=== PATIENT | male | born 1950 | race Caucasian/White ===

== ENCOUNTER 2019-04-19 05:05 | Day surgery (SDC) | payer OTHER ==
[2019-04-14 12:04] LABS: BASOPHILS % (AUTO) 0.4 % (0-1); EOSINOPHILS # (AUTO) 0.2 X10'3 (0-0.9); EOSINOPHILS % (AUTO) 3.7 % (0-6); HEMATOCRIT 47.1 % (42.0-52.0); HEMOGLOBIN 16.3 g/dl (14.0-17.9); LYMPHOCYTES # (AUTO) 1.9 X10'3 (1.1-4.8); LYMPHOCYTES % (AUTO) 29.6 % (21-51); MEAN CORPUSCULAR HEMOGLOBIN 31.4 PG (27.0-31.0); MEAN CORPUSCULAR HGB CONC 34.6 g/dL (33.0-36.5); MEAN CORPUSCULAR VOLUME 90.8 FL (78-98); MEAN PLATELET VOLUME 8.2 FL (7.4-10.4); MONOCYTES # (AUTO) 0.6 X10'3 (0-0.9); MONOCYTES % (AUTO) 9.3 % (2-12); NEUTROPHILS # (AUTO) 3.7 X10'3 (1.8-7.7); PLATELET COUNT 178 X10'3 (140-440); RED BLOOD COUNT 5.18 X10'6 (4.70-6.10); RED CELL DISTRIBUTION WIDTH 13.3 % (11.5-14.5); WHITE BLOOD COUNT 6.5 X10'3 (4.5-11.0)
[2019-04-14 12:15] LABS: ALBUMIN 3.9 G/DL (3.4-5.0); ANION GAP 9 (8-16); BLOOD UREA NITROGEN 19 MG/DL (7-18); BUN/CREATININE RATIO 20.4 (5.4-32.0); CALCIUM 8.9 MG/DL (8.5-10.1); CHLORIDE 105 MMOL/L (99-107); CREATININE 0.93 MG/DL (0.60-1.10); GLUCOSE 93 MG/DL (70-104); POTASSIUM 3.9 MMOL/L (3.5-5.1); SODIUM 142 MMOL/L (135-145); TOTAL CARBON DIOXIDE 28.1 MMOL/L (24-32); eGFR 81 ML/MIN
[2019-04-14 12:16] LABS: PARTIAL THROMBOPLASTIN TIME 32 SECONDS (22-32)
[2019-04-19] VITALS (12 sets, daily range): BP systolic 119–157; BP diastolic 71–87
[~2019-04-19] VITALS: Ht 162.6 cm; Wt 86.9 kg
[~2019-04-19 05:05] MED LIST: ACET500C5 PO; ASPI-1053 PO; ATOR20TA PO; CARV6.253 PO; CLOP75TA15 PO; LOSA100T57 PO; [UNRECOGNIZED DRUG - CODE] PO
[2019-04-19] MEDS ORDERED: LORazepam 0.5 MG tablet PO PRN (05:20)
[2019-04-19] MEDS ORDERED: normal saline 1,000 ML IV SCH (05:20)
[2019-04-19] MEDS ORDERED: diphenhydrAMINE 25mg capsule PO PRN (05:20)
[2019-04-19] MEDS ORDERED: CHLO25TA2 PO (05:47)
[2019-04-19] MEDS ORDERED: iohexol 350MG/ML 100ml bottle IV ONE (06:10)
[2019-04-19] MEDS ORDERED: LIDOcaine 1% (10mg/ml)w/preservative injection 20ml MDV ONE (06:10)
[2019-04-19] MEDS ORDERED: midazolam 2 mg/2 ml injection ONE (06:24)
[2019-04-19] MEDS ORDERED: fentaNYL/PF 50MCG/1 ML 2ML syringe ONE (06:24)
[2019-04-19] MEDS ORDERED: proCHLORperazine 10 MG/2 ml inj ONE (06:34)
[2019-04-19] MEDS ORDERED: HYDROcodone/acetaminophen 5mg/325mg tablet PO PRN (07:10)
[2019-04-19] MEDS ORDERED: ondansetron/PF 4mg/2ml inj IV PRN (07:10)
[2019-04-19] MEDS ORDERED: proCHLORperazine 10 MG/2 ml inj IV PRN (07:10)
[2019-04-19] MEDS ORDERED: HYDROcodone/acetaminophen 10/325mg tab PO PRN (07:10)
[2019-04-19] MEDS ORDERED: OXAZEpam 15mg capsule PO PRN (07:10)
== END 2019-04-19 10:07 | disposition home or self-care (01) ==
LOC: SSTAY O 05:05
PROVIDERS: ATTEND Internal Medicine Interventional Cardiology
DX: R94.39 Abnormal result of other cardiovascular function study (principal); R07.9 Chest pain, unspecified; I25.10 Atherosclerotic heart disease of native coronary artery without angina pectoris; J44.9 Chronic obstructive pulmonary disease, unspecified; G47.33 Obstructive sleep apnea (adult) (pediatric); I25.2 Old myocardial infarction; I10 Essential (primary) hypertension; E78.5 Hyperlipidemia, unspecified; F43.10 Post-traumatic stress disorder, unspecified; F32.9 Major depressive disorder, single episode, unspecified; I48.20 Chronic atrial fibrillation, unspecified; Z88.2 Allergy status to sulfonamides; Z79.899 Other long term (current) drug therapy; Z79.01 Long term (current) use of anticoagulants; Z79.82 Long term (current) use of aspirin; Z87.891 Personal history of nicotine dependence
CPT/HCPCS: 36415; 80048; 85025; 85610; 85730; 93005; 93458; 99152; C1769; J0780; J1644; J2001; J2250; J3010; J7030; Q0163; Q9967; A4620; A6258

== ENCOUNTER 2021-02-17 23:12 | Emergency (ER) | payer OTHER, MEDICARE ==
[~2021-02-17] VITALS: Ht 162.6 cm; Wt 88.5 kg
[~2021-02-17 23:12] MED LIST changes: +CHLO25TA2 PO
[2021-02-18 00:11] LABS: BASOPHILS % (AUTO) 0.4 % (0-1); EOSINOPHILS # (AUTO) 0.1 X10'3 (0-0.9); EOSINOPHILS % (AUTO) 0.5 % (0-6); HEMATOCRIT 44.2 % (42.0-52.0); HEMOGLOBIN 15.5 g/dl (14.0-17.9); LYMPHOCYTES # (AUTO) 1.2 X10'3 (1.1-4.8); LYMPHOCYTES % (AUTO) 10.4 % (21-51); MEAN CORPUSCULAR HEMOGLOBIN 31.3 PG (27.0-31.0); MEAN CORPUSCULAR VOLUME 89.5 FL (78-98); MEAN PLATELET VOLUME 8.5 FL (7.4-10.4); MONOCYTES # (AUTO) 0.7 X10'3 (0-0.9); MONOCYTES % (AUTO) 5.9 % (2-12); NEUTROPHILS # (AUTO) 9.3 X10'3 (1.8-7.7); NEUTROPHILS % (AUTO) 82.8 % (42-75); PLATELET COUNT 165 X10'3 (140-440); RED BLOOD COUNT 4.94 X10'6 (4.70-6.10); RED CELL DISTRIBUTION WIDTH 13.4 % (11.5-14.5); WHITE BLOOD COUNT 11.2 X10'3 (4.5-11.0)
[2021-02-18 00:24] LABS: ALANINE AMINOTRANSFERASE 236 U/L (12-78); ALBUMIN 3.9 G/DL (3.4-5.0); ALBUMIN/GLOBULIN RATIO 1.3 (1.1-1.5); ALKALINE PHOSPHATASE 105 IU/L (46-116); ANION GAP 8 (8-16); ASPARTATE AMINO TRANSFERASE 148 U/L (10-37); BILIRUBIN,TOTAL 2.7 MG/DL (0.1-1.0); BLOOD UREA NITROGEN 21 MG/DL (7-18); BUN/CREATININE RATIO 17.8 (5.4-32.0); CALCIUM 8.5 MG/DL (8.5-10.1); CHLORIDE 103 MMOL/L (99-107); CREATININE 1.18 MG/DL (0.60-1.10); GLUCOSE 146 MG/DL (70-104); POTASSIUM 3.4 MMOL/L (3.5-5.1); SODIUM 139 MMOL/L (135-145); TOTAL CARBON DIOXIDE 27.6 MMOL/L (24-32); eGFR 61 ML/MIN
[2021-02-18 00:32] LABS: LIPASE 162 U/L (73-393)
[2021-02-18 01:10] VITALS: BP 139/79
== END 2021-02-18 01:21 | disposition home or self-care (01) ==
LOC: ER 23:13
DX: R07.89 Other chest pain (principal); R12 Heartburn; R14.0 Abdominal distension (gaseous); I10 Essential (primary) hypertension; Z88.2 Allergy status to sulfonamides; Z79.899 Other long term (current) drug therapy; Z79.82 Long term (current) use of aspirin; I25.10 Atherosclerotic heart disease of native coronary artery without angina pectoris; I25.2 Old myocardial infarction; Z95.5 Presence of coronary angioplasty implant and graft; Z87.81 Personal history of (healed) traumatic fracture; Z72.89 Other problems related to lifestyle
CPT/HCPCS: 36415; 71045; 80053; 83690; 83880; 84484; 85025; 93005; 99285

== ENCOUNTER 2022-09-06 14:19 | Outpatient (CLI) | payer OTHER, MEDICARE | END 2022-09-06 23:59 | disposition home or self-care (01) | LOC: RAD 14:19 | PROVIDERS: ATTEND Chiropractor | DX: I08.0 Rheumatic disorders of both mitral and aortic valves (principal); I25.10 Atherosclerotic heart disease of native coronary artery without angina pectoris; I25.2 Old myocardial infarction | CPT/HCPCS: 93306 ==

== ENCOUNTER 2022-10-09 08:38 | Outpatient (CLI) | payer OTHER ==
[~2022-10-09] VITALS: Ht 162.6 cm; Wt 88.9 kg
[2022-10-09] MEDS ORDERED: albuterol 2.5 MG/3 ML nebule NEB PRN (09:05)
== END 2022-10-09 23:59 | disposition home or self-care (01) ==
LOC: RT 08:38
PROVIDERS: ATTEND Chiropractor
DX: J44.9 Chronic obstructive pulmonary disease, unspecified (principal)
CPT/HCPCS: 71046; 94060; 94760

== ENCOUNTER 2023-11-26 08:31 | Inpatient (IN) | payer OTHER, MEDICARE ==
[~2023-11-26] VITALS: Ht 162.6 cm; Wt 90.0 kg
[~2023-11-26 08:31] MED LIST changes: -LOSA100T57 PO; +LOSA100T58 PO
[2023-11-26 08:59] LABS: BASOPHILS % (AUTO) 0.3 % (0-1); EOSINOPHILS # (AUTO) 0.1 X10'3 (0-0.9); EOSINOPHILS % (AUTO) 1.1 % (0-6); HEMATOCRIT 46.5 % (42.0-52.0); HEMOGLOBIN 15.8 g/dl (14.0-17.9); LYMPHOCYTES # (AUTO) 1.8 X10'3 (1.1-4.8); LYMPHOCYTES % (AUTO) 21.1 % (21-51); MEAN CORPUSCULAR HEMOGLOBIN 31.6 PG (27.0-31.0); MEAN CORPUSCULAR HGB CONC 33.9 g/dL (33.0-36.5); MEAN CORPUSCULAR VOLUME 93.1 FL (78-98); MEAN PLATELET VOLUME 7.8 FL (7.4-10.4); MONOCYTES # (AUTO) 0.8 X10'3 (0-0.9); MONOCYTES % (AUTO) 9.5 % (2-12); NEUTROPHILS # (AUTO) 5.7 X10'3 (1.8-7.7); PLATELET COUNT 162 X10'3 (140-440); RED BLOOD COUNT 4.99 X10'6 (4.70-6.10); WHITE BLOOD COUNT 8.3 X10'3 (4.5-11.0)
[2023-11-26 09:02] LABS: ALBUMIN 3.6 G/DL (3.4-5.0); ANION GAP 6 (8-16); BLOOD UREA NITROGEN 20 MG/DL (7-18); BUN/CREATININE RATIO 19.8 (10.0-20.0); CALCIUM 9.2 MG/DL (8.5-10.1); CHLORIDE 103 MMOL/L (99-107); CREATININE 1.01 MG/DL (0.60-1.10); GLUCOSE 95 MG/DL (70-104); POTASSIUM 4.1 MMOL/L (3.5-5.1); SODIUM 136 MMOL/L (135-145); TOTAL CARBON DIOXIDE 26.7 MMOL/L (24-32); eCRCL 55 ML/MIN; eGFR 73 ML/MIN
[2023-11-26 09:07] LABS: APTT 29 SECONDS (22-32); PROTHROMBIN TIME 10.8 SECONDS (9.0-12.0)
[2023-11-26] MEDS ORDERED: iohexol 350MG/ML 100ml bottle IV ONE (11:36)
[2023-11-26] MEDS: clopidogrel 75mg tablet PO ONE (14:05)
[2023-11-26] MEDS ORDERED: SIME80TA15 PO (17:45)
[2023-11-26] MEDS ORDERED: DICL100G59 TOP (17:45)
[2023-11-26] MEDS ORDERED: SPIR25TA5 PO (17:45)
[2023-11-26] MEDS ORDERED: ALIR75PE5 SUBCUT (17:57)
[2023-11-26] MEDS ORDERED: LIDO700A47 TOP (17:57)
[2023-11-26] MEDS ORDERED: EZET10TA6 PO (17:57)
[2023-11-26] MEDS ORDERED: GABA-530 PO (17:57)
[2023-11-26] MEDS ORDERED: OSC500T PO (18:02)
[2023-11-26] MEDS ORDERED: ERGO400C PO (18:02)
[2023-11-26 18:35] VITALS: PULSE 58; RESP 16; O2SAT 95
[2023-11-26] MEDS: heparin, porcine 5000 units/ml vial SQ SCH (19:59)
[2023-11-26 21:30] VITALS: BP 129/72; PULSE 60; RESP 16; TEMP 96.9; O2SAT 96
[2023-11-27 00:03] VITALS: PULSE 86; RESP 16; O2SAT 93
[2023-11-27 02:00] VITALS: BP 105/63; PULSE 60; RESP 14; TEMP 97.9; O2SAT 95
[2023-11-27 06:00] VITALS: BP 119/62; PULSE 55; RESP 16; TEMP 97.6; O2SAT 97
[2023-11-27 06:42] LABS: BASOPHILS % (AUTO) 0.3 % (0-1); EOSINOPHILS # (AUTO) 0.1 X10'3 (0-0.9); EOSINOPHILS % (AUTO) 1.2 % (0-6); HEMATOCRIT 48.5 % (42.0-52.0); HEMOGLOBIN 16.3 g/dl (14.0-17.9); LYMPHOCYTES # (AUTO) 2.1 X10'3 (1.1-4.8); LYMPHOCYTES % (AUTO) 27.1 % (21-51); MEAN CORPUSCULAR HGB CONC 33.5 g/dL (33.0-36.5); MEAN CORPUSCULAR VOLUME 92.6 FL (78-98); MONOCYTES # (AUTO) 0.8 X10'3 (0-0.9); MONOCYTES % (AUTO) 10.2 % (2-12); NEUTROPHILS # (AUTO) 4.7 X10'3 (1.8-7.7); NEUTROPHILS % (AUTO) 61.2 % (42-75); PLATELET COUNT 171 X10'3 (140-440); RED BLOOD COUNT 5.24 X10'6 (4.70-6.10); WHITE BLOOD COUNT 7.7 X10'3 (4.5-11.0)
[2023-11-27 06:56] LABS: HEMOGLOBIN A1C 5.6 % (4.5-6.2)
[2023-11-27 07:06] LABS: ANION GAP 7 (8-16); BLOOD UREA NITROGEN 22 MG/DL (7-18); BUN/CREATININE RATIO 22.2 (10.0-20.0); CHLORIDE 104 MMOL/L (99-107); CREATININE 0.99 MG/DL (0.60-1.10); GLUCOSE 95 MG/DL (70-104); POTASSIUM 4.2 MMOL/L (3.5-5.1); SODIUM 138 MMOL/L (135-145); TOTAL CARBON DIOXIDE 26.8 MMOL/L (24-32); eCRCL 56 ML/MIN; eGFR 74 ML/MIN
[2023-11-27 07:07] LABS: ALBUMIN 3.7 G/DL (3.4-5.0); CHOL/HDL RATIO 1.6 (0.00-4.99); CHOLESTEROL 87 MG/DL (0-200); HDL CHOLESTEROL 54 MG/DL (35-60); LDL CHOLESTEROL 27 MG/DL (50-100); MAGNESIUM 2.1 MG/DL (1.5-2.4); TRIGLYCERIDES 99 MG/DL (20-135)
[2023-11-27] MEDS: spironolactone 25 MG tablet PO SCH (08:42)
[2023-11-27] MEDS: clopidogrel 75mg tablet PO SCH (08:43)
[2023-11-27] MEDS: chlorthalidone 25mg tablet PO SCH (08:43)
[2023-11-27] MEDS: ezetimibe 10mg tablet PO SCH (08:43)
[2023-11-27] MEDS: aspirin 81mg tab.chew PO SCH (08:44)
[2023-11-27] MEDS: losartan 50mg tablet PO SCH (08:44)
[2023-11-27] MEDS: carvedilol 6.25mg tablet PO SCH (08:44)
[2023-11-27 12:00] VITALS: BP 122/65; PULSE 57; RESP 16; TEMP 97.9; O2SAT 97
[2023-11-27] MEDS ORDERED: CLOP-32 PO (14:59)
[2023-11-27] MEDS ORDERED: gabapentin 100mg capsule PO SCH (21:00)
== END 2023-11-27 16:00 | disposition home or self-care (01) | DRG 69 ==
LOC: ER 08:32 → ED HOLD 13:30 → ORTHO 4S 21:10
PROVIDERS: ADMIT Internal Medicine; ATTEND Internal Medicine
PROC: B3251ZZ Computerized Tomography (CT Scan) of Bilateral Common Carotid Arteries using Low Osmolar Contrast (ICD-10-PCS; principal; 2023-11-26)
PROC: B32G1ZZ Computerized Tomography (CT Scan) of Bilateral Vertebral Arteries using Low Osmolar Contrast (ICD-10-PCS; 2023-11-26)
PROC: B32R1ZZ Computerized Tomography (CT Scan) of Intracranial Arteries using Low Osmolar Contrast (ICD-10-PCS; 2023-11-26)
PROC: B3281ZZ Computerized Tomography (CT Scan) of Bilateral Internal Carotid Arteries using Low Osmolar Contrast (ICD-10-PCS; 2023-11-26)
PROC: 5A09357 Assistance with Respiratory Ventilation, Less than 24 Consecutive Hours, Continuous Positive Airway Pressure (ICD-10-PCS; 2023-11-27)
DX: G45.9 Transient cerebral ischemic attack, unspecified (principal); I10 Essential (primary) hypertension; I25.10 Atherosclerotic heart disease of native coronary artery without angina pectoris; I11.0 Hypertensive heart disease with heart failure; E78.00 Pure hypercholesterolemia, unspecified; J44.9 Chronic obstructive pulmonary disease, unspecified; I50.9 Heart failure, unspecified; R29.701 NIHSS score 1; G47.33 Obstructive sleep apnea (adult) (pediatric); Z85.828 Personal history of other malignant neoplasm of skin; Z87.891 Personal history of nicotine dependence; Z82.49 Family history of ischemic heart disease and other diseases of the circulatory system; Z95.5 Presence of coronary angioplasty implant and graft; Z82.3 Family history of stroke; Z88.2 Allergy status to sulfonamides; Z88.8 Allergy status to other drugs, medicaments and biological substances; Z79.899 Other long term (current) drug therapy; Z79.82 Long term (current) use of aspirin
CPT/HCPCS: 36415; 70450; 70496; 70498; 70551; 71045; 80048; 80061; 82948; 83036; 83735; 84484; 85025; 85610; 85730; 87081; 93005; 93306; 93880; 94760; 97116; 97161; 97530; 99285; G0378; J1644; J3490; Q9967